=== PATIENT | male | born 1955 | race Caucasian/White ===

== ENCOUNTER 2021-04-10 08:35 | Outpatient (CLI) | payer MEDICARE, SELFPAY ==
--- NOTE | 2021-04-10 | EST_ITS ---
Patient Info Name: Irvin Burnham Age: 65 years : 1955 Gender: Male Ht: 73 in Wt: 170 lbs BSA: 1.99 m2 HR: 68 bpm BP: 111 / 79 mmHg Heart Rhythm: Sinus Rhythm Exam Date: 04/10/2021 9:04 AM Exam Location: [facility] Stress Patient Status: Outpatient Admit Date: 04/10/2021 Staff Ordering Physician: Reji, Jacoby Sandy NP Attending Provider: Reji, Jacoby Sandy NP Exercise Technologist: Bri Ball CT Nurse: JACOBY MORA Exercise Physician: Jose Lynch MD Exam Type: CA stress test treadmill Study Info Indications R07.9 - Chest pain, unspecified A treadmill exercise stress test was performed. Summary 1. Occasional stress-induced premature ventricular contractions. 2. No abnormal ST/T wave changes with exercise. 3. Exercise capacity fair to good at 6-10 METS. 4. Normal blood pressure response. 5. No chest discomfort with stress test. 6. Maximal treadmill stress EKG study exercising 6 minutes and 54 seconds of a Robert protocol achieving 91% of age predicted maximum heart rate and 8.6 Mets at peak exercise. 7. Francois treadmill score + 6 indicating low risk for adverse cardiovascular events of the next 5 years. Clinical correlation advised. Protocol: Robert Stress ECG Details Stage: REST Duration (min): 1 min : 0 sec Speed (mph): 0.0 Grade (%): 0 HR (bpm): 63 SBP (mmHg): 111 DBP (mmHg): 79 METS: --- Stage: REST Duration (min): 21 min : 12 sec Speed (mph): 0.0 Grade (%): 0 HR (bpm): 68 SBP (mmHg): 111 DBP (mmHg): 79 METS: --- Stage: REST Duration (min): 27 min : 26 sec Speed (mph): 1.0 Grade (%): 0 HR (bpm): 79 SBP (mmHg): 111 DBP (mmHg): 79 METS: --- Stage: STAGE 1 Duration (min): 1 min : 0 sec Speed (mph): 1.7 Grade (%): 10 HR (bpm): 95 SBP (mmHg): 111 DBP (mmHg): 79 METS: --- Stage: STAGE 1 Duration (min): 2 min : 0 sec Speed (mph): 1.7 Grade (%): 10 HR (bpm): 105 SBP (mmHg): 111 DBP (mmHg): 79 METS: --- Stage: STAGE 1 Duration (min): 3 min : 0 sec Speed (mph): 1.7 Grade (%): 10 HR (bpm): 101 SBP (mmHg): 149 DBP (mmHg): 51 METS: --- Stage: STAGE 2 Duration (min): 1 min : 0 sec Speed (mph): 2.5 Grade (%): 12 HR (bpm): 119 SBP (mmHg): 149 DBP (mmHg): 51 METS: --- Stage: STAGE 2 Duration (min): 2 min : 0 sec Speed (mph): 2.5 Grade (%): 12 HR (bpm): 128 SBP (mmHg): 177 DBP (mmHg): 58 METS: --- Stage: STAGE 2 Duration (min): 3 min : 0 sec Speed (mph): 2.5 Grade (%): 12 HR (bpm): 131 SBP (mmHg): 177 DBP (mmHg): 58 METS: --- Stage: STAGE 3 Duration (min): 0 min : 54 sec Speed (mph): 3.4 Grade (%): 14 HR (bpm): 141 SBP (mmHg): 196 DBP (mmHg): 71 METS: --- Stage: RECOVERY Duration (min): 0 min : 5 sec Speed (mph): 1.5 Grade (%): 0 HR (bpm): 141 SBP (mmHg): 196 DBP (mmHg): 71 METS:
--- NOTE | 2021-04-10 13:04 | WPDPFTINT ---
PFT Procedure Performed PFT Procedure Performed Spirometry with Pre/Post Bronchodilator Plethysmography (Lung Vol) Diffusing Cap (DLCO) Flow Vol Loop PFT Interpretation This is a pulmonary function test with spirometry, plethysmography and diffusing capacity. The test was performed and results interpreted in accordance with the 2019 and 2005 ATS/ERS Task Force guidelines respectively using the Global Lung Function Initiative-2012 reference equations. Patient demonstrated good effort and cooperation. Reproducibility criteria were met. The quality of the spirometry maneuver was Grade A. Findings: Spirometry: there is decreased maximal expiratory airflow at all lung volumes with concave expiratory flow tracing. The contour the inspiratory flow tracing is normal. The FVC is 4.40 L, 97% predicted. The FEV1 is 2.83 L, 82% predicted. The FEV1: FVC ratio 64%. Plethysmography: The total lung capacity is 8.18 L, 114% predicted. The functional residual capacity is 5.24 L, 138% predicted. The residual volume is 3.78 L, 157% predicted. Diffusing capacity: The diffusing capacity unadjusted for hemoglobin is 25.8, 94% predicted. The diffusing capacity adjusted for alveolar volume is 3.67, 92% predicted. Impression: There is a mild obstructive abnormality with a normal FEV1. The increase in residual volume is consistent with air trapping from an obstructive abnormality. The diffusing capacity is normal. There are no prior studies for comparison
== END 2021-04-10 08:36 | disposition home or self-care (01) ==
PROVIDERS: PCP Internal Medicine; Visit Provider Nurse Practitioner Family
DX: G56.01 Carpal tunnel syndrome, right upper limb (principal); G56.21 Lesion of ulnar nerve, right upper limb
CPT/HCPCS: 93017; 94375; 94726; 94729

== ENCOUNTER → 2021-05-01 14:11 | Outpatient (CLI) | payer MEDICARE, SELFPAY ==
--- NOTE | ~2021-05-01 | CT_ITS ---
EXAMINATION: CT lung screening EXAM DATE: 05/01/2021 14:28 INDICATION: Personal history of nicotine dependence. TECHNIQUE: Spiral low dose CT of the chest without contrast. Axial, coronal and sagittal images were reviewed. The dose-length product (DLP) for this examination was 92.94 mGy-cm. The exposure was ta ilored according to patient size (auto mA exposure control), and iterative reconstruction (ASIR) was used as additional dose reduction technique. There is no prior study for comparison. FINDINGS: The lungs are clear. Tracheobronchial tree is patent. There is no mediastinal, hilar o r axillary lymphadenopathy. There are no pleural or pericardial effusions. There is no pneumothor ax. There is mild coronary arterial calcification, arterial sclerosis. There is mild emphysema an d moderate hyperinflation with narrow cardiac silhouette. Upper abdomen is unremarkable. There is t horacic spondylosis without osteoblastic or osteolytic lesions identified. IMPRESSION: Lung-RADS category 1, negative (<1%chance of malignancy); recommend continued LDCT screen ing in 1 year. Reviewed, dictated and finalized at location A. NSIVE CARE MEDICINE SPECIALIST IMPRESSION: Lung-RADS category 1, negative (<1%chance of malignancy); recommend continued LDCT screening in 1 year.
== END ==
PROVIDERS: Visit Provider Nurse Practitioner
DX: Z12.2 Encounter for screening for malignant neoplasm of respiratory organs (principal); F17.210 Nicotine dependence, cigarettes, uncomplicated
CPT/HCPCS: 71271

== ENCOUNTER 2022-07-28 00:19 | Day surgery (SDC) | payer MEDICARE, SELFPAY ==
[2022-07-21 10:31] VITALS: BMI 21.2
--- NOTE | 2022-07-21 11:31 | PC.NURSE ---
PT STATES HE IS VERY ANXIOUS BECAUSE DURING LAST COLONOSCOPY 06/05/2015 HE VOMITED WHAT HE FELT LIKE WAS A LOT, HE IS AFRAID OF DOING THIS AGAIN DURING THIS PROCEDURE. I WENT OVER PRECAUTIONS AND ANESTHESIA WITH PATIENT. WE DISCUSSED HIS PREP AND HE IS REQUESTING TO DO A 2 DAY TO MAKE SURE HE IS WELL PREPPED FOR THIS, I WENT OVER DR. MADISON 2 DAY MIRALAX PREP WITH PATIENT AND DUE TO HIM STATING THAT HE FEELS HE HAS A SLOW EMPTYING I INSTRUCTED HIM TO START THE MIRALAX ON DAY 2 AT 5 AND BE NPO AFTER 10-11PM AND NOTHING TO DRINK AM OF PROC. PT ENCOURAGED TO DISCUSS THE VOMITING WITH ANESTHESIA WHEN HE COMES IN DOS
--- NOTE | 2022-07-28 08:42 | P.PNAN_ITS ---
Anes - Initial Pre Proc Eval Procedure: Operation Date: 07/28/22 11:00 Proposed Procedures p Colonoscopy - Jr Leonardo MD Date/Time: 07/28/22 08:42 Surgeon: Jr Leonardo MD Pre Op Diagnosis: family hx colon ca/polyps Patient Data Age: 67 Gender: M Height: 1.88 m Weight: 75 kg Allergies Allergy/AdvReac Type Severity Reaction Status Date / Time No Known Allergies Allergy Unknown Verified 07/28/22 09:53 Home Medications Medication Instructions Recorded Confirmed Type bupropion HCl 150 mg 24 hr tablet, 150 mg PO DAILY 07/21/22 07/28/22 History extended release fluticasone fur. 100 mcg-umeclid 1 inh inhalation DAILY 07/21/22 07/28/22 History 62.5 mcg-vilant 25 mcg inhalat.powder (Trelegy Ellipta) kyajnggk-few-urxve acid 300 1 tablet PO DAILY 07/21/22 07/28/22 History mcg-lycopene 600 mcg-lutein 300 mcg tablet (Centrum Silver Men) Patient hx anesthesia problems: none Family hx anesthesia problems: none Results Review: All pre-operative results and documents have been reviewed as part of the pre- operative evaluation. PMFSH Past Medical History Medical History Smoker Social History Social History Years smoked: 50 Smoking status: Current every day smoker Substance use: never Substance use type: does not use Living arrangements: with family Spiritual care concerns: No Anes - Eval Final PreProcedure Day of Procedure 07/28/22 08:42 Patient weight: normal Heart: regular rate and rhythm Lungs: clear to auscultation and normal air movement Airway: Mallampati scale class II Neurological: alert and oriented Last oral intake: >/= 8 hours ASA classification: II Emergent: no Anesthetic plan: proceed Anesthesia type and monitoring: general GIVS Results Review: All pre-operative results and documents have been reviewed as part of the pre- operative evaluation. Informed Consent: The patient's anesthetic plan and its attendant risks and benefits were discussed with the patient/family/POA. Questions were solicited and answers provided to the satisfaction of the patient/family/POA.
[2022-07-28 09:54] VITALS: BP 136/69; PULSE 76; RESP 18; TEMP 36.4; O2SAT 99
--- NOTE | 2022-07-28 10:04 | PM.HPGS ---
History of Present Illness History of Present Illness Consent: Risks, benefits, and alternatives have been discussed and questions answered. Patient agrees to proceed with procedure. Chief complaint: family hx colon ca/polyps Narrative: Irvin Burnham is a 67 year old male Who had polyps removed about 7 years ago. There is also family history of polyps. Review of Systems Review of Systems: All systems reviewed & are unremarkable except as noted in HPI and below PMFSH Past Medical History Medical History Smoker Social History Social History Years smoked: 50 Smoking status: Current every day smoker Substance use: never Substance use type: does not use Living arrangements: with family Spiritual care concerns: No Meds Home Medications and Allergies Home Medications Medication Instructions Recorded Confirmed Type bupropion HCl 150 mg 24 hr tablet, 150 mg PO DAILY 07/21/22 07/28/22 History extended release fluticasone fur. 100 mcg-umeclid 1 inh inhalation DAILY 07/21/22 07/28/22 History 62.5 mcg-vilant 25 mcg inhalat.powder (Trelegy Ellipta) zmmvtqtf-lzd-rgvkw acid 300 1 tablet PO DAILY 07/21/22 07/28/22 History mcg-lycopene 600 mcg-lutein 300 mcg tablet (Centrum Silver Men) Allergies Allergy/AdvReac Type Severity Reaction Status Date / Time No Known Allergies Allergy Unknown Verified 07/28/22 09:53 Vital Signs Vital Signs - 24 hr 07/28/22 09:54 Temperature 36.4 C Pulse Rate 76 Respiratory Rate 18 Blood Pressure 136/69 Pulse Oximetry 99 Oxygen Delivery Room Air Exam Const: General: alert Orientation/consciousness: patient oriented x3 Resp: Auscultation: clear to auscultation bilaterally Cardio: Rate: regular rate Rhythm: regular rhythm GI: GI Palp: Yes Soft to palpation and No Tenderness to palpation present (GI) Neuro: General: patient oriented x3
[2022-07-28] MEDS: LACTATED RINGERS 1,000 ML 150 ML IV CONT (10:23)
[2022-07-28 11:03] VITALS: BP 81/51; PULSE 57; RESP 12; O2SAT 97
[2022-07-28 11:13] VITALS: BP 83/50; PULSE 54; RESP 12; O2SAT 98
[2022-07-28 11:23] VITALS: BP 95/58; PULSE 50; RESP 18; O2SAT 99
[2022-07-28 11:33] VITALS: BP 100/71; PULSE 50; RESP 22; O2SAT 99
[2022-07-28 11:43] VITALS: BP 108/55; PULSE 54; RESP 19; O2SAT 99
== END 2022-07-28 11:50 | disposition home or self-care (01) ==
PROVIDERS: PCP Internal Medicine; Visit Provider Internal Medicine Gastroenterology
PROC: 0DJD8ZZ Inspection of Lower Intestinal Tract, Via Natural or Artificial Opening Endoscopic (ICD-10-PCS; CPT 45378; principal; 2022-07-28 11:00)
DX: Z12.11 Encounter for screening for malignant neoplasm of colon (principal); D12.4 Benign neoplasm of descending colon; Z79.51 Long term (current) use of inhaled steroids; F17.200 Nicotine dependence, unspecified, uncomplicated
CPT/HCPCS: 45380; 88305; J2001; J2704; J7120

== ENCOUNTER 2023-05-02 12:21 | Outpatient (CLI) | payer MEDICARE, SELFPAY ==
--- NOTE | ~2023-05-02 | CT_ITS ---
CT Scan of the Chest without Contrast: Clinical Indication: Lung cancer screening, nicotine dependence Technique: Contiguous sections were acquired throughout the chest without intravenous contrast. Dose reduction technique was used on this scan by utilizing automated exposure control and iterative recon struction technique. The dose-length product (DLP) was 83.17 mGy-cm. COMPARISON: 05/01/2021 Findings: There is no evidence of any significant mediastinal, hilar or axillary lymphadenopathy. The mediastin al soft tissues appear normal. There is no evidence of pleural or pericardial effusion. Calcified lingular granuloma noted. Right apical paraseptal emphysematous change noted. Images through the upper abdomen reveal no abnormalities. Impression: Lung RADS 2: Benign appearance. 12 month follow-up screening CT advised. Reviewed, dictated and finalized at [facility]. Impression: Lung RADS 2: Benign appearance. 12 month follow-up screening CT advised.
== END 2023-05-02 12:22 | disposition home or self-care (01) ==
LOC: ANHIMG 12:23
PROVIDERS: PCP Internal Medicine; Visit Provider Internal Medicine
DX: F17.210 Nicotine dependence, cigarettes, uncomplicated (principal)
CPT/HCPCS: 71271

== ENCOUNTER 2023-05-18 15:27 | Emergency (ER) | payer MEDICARE, MEDICAID, SELFPAY ==
--- NOTE | 2023-05-18 15:36 | ED.URI ---
HPI - URI/Sore Throat General Chief Complaint: Upper Respiratory Infection Stated Complaint: COUGH/SORE THROAT/DIZZY/NO ENERGY Time Seen by Provider: 05/18/23 15:36 Source: patient Mode of arrival: ambulatory Limitations: no limitations History of Present Illness HPI Narrative: Patient is a 59-year-old male that presents with 2 days of cough, congestion, sore throat and fatigue. Patient states cough and sore throat improved today but he woke up extremely tired and still having congestion. Patient has not taken anything for symptoms. Patient had exposure to COVID from grandson. Denies any fever, chills, nausea vomiting diarrhea. Related Data Home Medications Medication Instructions Recorded Confirmed bupropion HCl 150 mg 24 hr tablet, 150 mg PO DAILY 07/21/22 07/28/22 extended release fluticasone fur. 100 mcg-umeclid 1 inh inhalation DAILY 07/21/22 07/28/22 62.5 mcg-vilant 25 mcg inhalat.powder (Trelegy Ellipta) fmmzuvyx-aa-gbzsi 300 mcg-K 60 1 tablet PO DAILY 07/21/22 07/28/22 mcg-lycop 600 mcg-lutein 300 mcg tablet (Centrum Silver Men) Allergies Allergy/AdvReac Type Severity Reaction Status Date / Time No Known Allergies Allergy Unknown Verified 07/28/22 09:53 Review of Systems Review of Systems: All systems reviewed & are unremarkable except as noted in HPI and below Constitutional: Constitutional: Denies body ache(s), Denies chills, Reports fatigue, Denies fever(s), Denies headache(s), Denies malaise and Denies weakness Eyes: Eyes: Denies blurry vision, Denies itchy eyes and Denies loss of vision ENT: Denies otalgia, Denies headache(s), Reports nasal congestion, Denies sinus pain and Reports sore throat Cardiovascular: Cardiovascular: Denies chest pain, Denies irregular heart rhythm and Denies dyspnea Respiratory: Respiratory: Reports cough and Denies dyspnea Gastrointestinal: Gastrointestinal: Denies abdominal pain, Denies diarrhea, Denies nausea and Denies vomiting Musculoskeletal: Musculoskeletal: Denies back pain, Denies myalgias and Denies arthralgias Integumentary/Breasts: Skin/Breast: Denies pruritus and Denies rash Neurologic: Denies headache(s), Denies loss of vision and Denies weakness Psychiatric: Psychiatric: Reports no additional psychiatric complaints Endocrine: Endocrine: Denies fatigue Allergic/Immunologic: Allergic/Immunologic: Denies itchy eyes PMFSH Past Medical History Medical History Smoker Social History Social History Years smoked: 50 Smoking status: Current every day smoker Substance use: never Substance use type: does not use Living arrangements: with family Spiritual care concerns: No Comments At time of signature, agree with nursing past medical, surgical, social and family history. There is no relevant family history pertinent to the presenting complaint. Exam Const: General: cooperative, healthy appearing, comfortable, no acute distress and well nourished Nutritional Appearance: well nourished Orientation/consciousness: patient oriented x3 Limitations: no limitations HENMT: Head: normal to inspection, normocephalic and atraumatic Ears: hearing grossly normal bilaterally, external ears normal, TM's normal bilaterally, EAC's normal and no periauricular adenopathy Face/Nose/Sinus: Normal external nose present, Abnormal mucous membranes and turbinates present erythematous bilateral and diffuse, normal facial exam, sinuses nontender and face symmetric Face and sinus: normal facial exam, sinuses nontender and face symmetric Mouth: Yes Normal oral and palatal mucosa present, Yes lip normal, Yes tongue normal, Yes Normal salivary glands and ducts present, Yes oropharynx normal and Yes moist mucous membranes Teeth and gingiva: dentition normal Throat: posterior oropharynx normal, tonsils normal and uvula midline Eyes: General: appearance normal, both eyes and all related structures A
[2023-05-18 15:40] VITALS: BP 101/65; PULSE 58; RESP 16; TEMP 36.3; O2SAT 99
== END 2023-05-18 16:01 | disposition home or self-care (01) ==
PROVIDERS: Emergency Provider Nurse Practitioner Family; PCP Internal Medicine
DX: J06.9 Acute upper respiratory infection, unspecified (principal); Z20.822 Contact with and (suspected) exposure to COVID-19; F17.200 Nicotine dependence, unspecified, uncomplicated
CPT/HCPCS: 87426; 99213; G0463

== ENCOUNTER 2024-03-09 09:25 | Outpatient (CLI) | payer MEDICARE, SELFPAY ==
--- NOTE | ~2024-03-09 | US_ITS ---
EXAMINATION: US aorta [facility] scr[facility] DATE: 03/09/2024 10:19 INDICATION: Current smoker for abdominal aortic aneurysm screening TECHNIQUE: Grayscale, color Doppler, and pulsed Doppler images of the aorta and common iliac arteries were obtained. COMPARISON: None. FINDINGS: The proximal aorta measures 2.9 cm AP. The mid aorta measures 2.2 cm. The distal aorta measures 2.3 c m. The right common iliac artery measures 1.2 cm. The left common iliac artery measures 1.0 cm. There are small amount of scattered nonhemodynamically significant atherosclerotic plaque along the abdomi nal aorta. IMPRESSION: 1. Normal caliber abdominal aorta. Reviewed, dictated and finalized at location B. ING ANALYST
== END 2024-03-09 09:26 | disposition home or self-care (01) ==
PROVIDERS: PCP Nurse Practitioner; Visit Provider Nurse Practitioner
DX: F17.200 Nicotine dependence, unspecified, uncomplicated (principal)
CPT/HCPCS: 76706

== ENCOUNTER 2024-05-02 09:56 | Outpatient (CLI) | payer MEDICARE, SELFPAY ==
--- NOTE | ~2024-05-02 | CT_ITS ---
CT Scan of the Chest without Contrast: Clinical Indication: Lung cancer screening, nicotine dependence Technique: Contiguous sections were acquired throughout the chest without intravenous contrast. Dose reduction technique was used on this scan by utilizing automated exposure control and iterative recon struction technique. The dose-length product (DLP) was 83.55 mGy-cm. COMPARISON: 05/02/2023 Findings: There is no evidence of any significant mediastinal, hilar or axillary lymphadenopathy. The mediastin al soft tissues appear normal. There is no evidence of pleural or pericardial effusion. There is mild biapical paraseptal emphysema. There are grouped subcentimeter nodules in the left uppe r lobe peripherally, most compatible with focal small airways infectious process. Largest nodule olga ures 5 mm. Images through the upper abdomen reveal no abnormalities. Impression: Lung RADS 2: Benign appearance. 12 month follow-up screening CT advised. Reviewed, dictated and finalized at [facility]. Impression: Lung RADS 2: Benign appearance. 12 month follow-up screening CT advised.
--- OUTSIDE RECORDS SUMMARY | 2024-05-02 10:58 | XMS_ITS | Clinical Summary ---
Author Organization [facility] Address [facility] [place] [address] Care Team Providers Care Wall Insulation Sprayer Name Role Phone Reena, Charlene Hakan FOOD SERVICE MANAGER Primary Care Provider [phone] Allergies No known active allergies Medications buPROPion XL (WELLBUTRIN XL) 150 MG 24 hr tablet Take 1 tablet (150 mg total) by mouth daily. Active TRELEGY ELLIPTA 100-62.5-25 MCG/ACT AEROSOL POWDER, BREATH ACTIVATED Inhale 1 puff into the lungs daily. 12/06/2023 Active Active Problems Problem Noted Date Diagnosed Date Adenomatous polyp 07/29/2023 Overview (07/29/2023): Colonoscopy 07/2022 Medial epicondylitis of both elbows 07/27/2023 Chronic obstructive pulmonar y disease, unspecified COPD type ([facility]) 07/27/2023 Current smoker 07/27/2023 Recurrent major depressive disorder, in partial remission 07/27/2023 History of colon polyps 07/27/2023 Encounters Date Type Department Care Team Description 03/09/2024 Scan [facility] SRVCS Scanned, [facility] Ultrasound (SCAN) from Last 3 Months Immunizations Name Administration Dates Next Due Arexvy Respiratory Syncytial Virus (RSV, adjuvanted) 0.5 mL, PF 11/10/2022 Fluzone High Dose (IIV, trivalent, 0.5mL) 2023 Fluzone High Dose - >Age 65 (Prefilled Syringe) 11/10/2022,12/06/2021 Influenza (Generic) 02/18/2017 Influenza Adult (Generic) 12/15/2020,01/03/2019 Pneumococcal (Prevnar 20) 07/10/2021 Tdap (Adacel) 07/27/2023 Tdap (Generic) 02/21/2012 Family History Medical History Relation Comments Cancer Brother Cancer Father Heart Disease Father Heart Disease Mother Arthritis Sister Heart Disease Sister Relation Status Comments Brother Alive Father Mother Sister Alive Social History Tobacco Use Types Packs/Day Years Used Date Smoking Tobacco: Every Day Cigarettes 0.5 52.2 Started: 1972 Passive Smoke Exposure: Past Smokeless Tobacco: Never Tobacco Cessation:Ready to Q uit: Yes; Counseling Given: Yes Alcohol Use Standard Drinks/Week Comments Not Currently 0 (1 standard drink = 0.6 oz pur e alcohol) AUDIT-C Answer Date Recorded Q1: How often do you have a drink containing alc ohol? Monthly or less 12/28/2023 Q2: How many drinks containi ng alcohol do you have on a typical day when you are drinking? 1 or 2 12/28/2023 Q3: How often do you have si x or more drinks on one occasion? Never 12/28/2023 PHQ-2 Answer Date Recorded Patient Health Questionnaire-2 Score 2 12/28/2023 Sex and Gender Information Value Date Recorded Sex Assigned at Not on file Legal Sex Male 1:16 PM CDT Gender Identity Not on file Sexual Orientation Not on file Last Filed Vital Signs Vital Sign Reading Time Taken Comments Blood Pressure 106/68 12/28/2023 10:47 AM METALLURGICAL SPECIALIST Pulse 61 12/28/2023 10:47 AM METALLURGICAL SPECIALIST Temperature 37.7 C (99.8 F) 12/28/2023 10:47 AM METALLURGICAL SPECIALIST Respiratory Rate 16 12/28/2023 10:47 AM METALLURGICAL SPECIALIST Oxygen Saturation 99% 12/28/2023 10:47 AM METALLURGICAL SPECIALIST Inhaled Oxygen Concentration - - Weight 73.6 kg (162 lb 3.2 oz) 12/28/2023 10:47 AM METALLURGICAL SPECIALIST Height 182.9 cm (6') 12/28/2023 10:47 AM METALLURGICAL SPECIALIST Body Mass Index 22 12/28/2023 10:47 AM METALLURGICAL SPECIALIST Plan of Treatment Upcoming Encounters Date Type Department Care Team (Late st Contact Info) Description 01/09/2025 1:00 PM METALLURGICAL SPECIALIST Office Visit [facility] - [address] [place] [address] Charlene Valles, FOOD SERVICE MANAGER [address] [place] [address] Health Maintenance Due Date Last Done Comments Hepatitis C 1973 Zoster Vaccines (1 of 2) 2004 PHQ-2 (Physician [place]) 02/22/2024 12/28/2023 Lung Cancer Screening 04/21/2024 Postpo sondra from 2004 (Awaiting Documentation) Annual Medicare Wellness Visit 12/28/2024 12/28/2023 Colorectal Cancer Screening Colonoscopy (10 Years) 07/28/2025 07/28/2022 DTaP, Tdap and Td Vaccines (3 - Td or Tdap) 07/26/2033 07/27/2023, 02/21/2012 Pneumococcal Vaccine: 65+ Years Completed 07/10/2021 RSV Immunization or 60+ Years Completed 11/10/2022 COVID-19 Vaccine Completed 11/09/2023, , 12/06/2021, Additional history exists Influenza Adult Completed 11/30/2023, 10/23, 12/06/2021, Additional history exists AAA SCREENING Completed 03/09/2024 Meningococcal B Vaccine Aged Out No l onger eligible based on patient's age to complete this topic Meningococcal Vaccine Aged Out No emilie lina eligible based on patient's age to complete this topic RSV Immunizations Under 20 Months Aged Out No longer eligible based on patient's age to complete this topic Procedures Procedure Name Priority Date/Time Associated Diagnosis Comments US AORTA (AAA) SCREEN - GENERIC 03/09/2024 COLONOSCOPY GENERIC (SCAN ORDER) 07/28/2022 from Last 3 Months or Most Recently Relevant to Health Maintenance Results * US AORTA (AAA) SCREEN - GENERIC (03/09/2024) Anatomical Region Laterality Modality Other 03/09/2024 [facility] Scanned SCANNING Final Resu lt * COLONOSCOPY GENERIC (SCAN ORDER) (07/28/2022) 07/28/2022 [facility] Scanned SCANNING Final Resu lt from Last 3 Months or Most Recently Relevant to Health Maintenance Insurance [facility] Care Teams Wall Insulation Sprayer Relationship Specialty Start Date End Date Charlene Valles NP [address] [place] [address] PCP - General NURSE PRACTITIONER 07/27/23
--- OUTSIDE RECORDS SUMMARY | 2024-05-02 10:58 | XMS_ITS | Clinical Summary ---
Author Organization [facility] Address [address], [address] [address] Phone Care Team Providers Care Shade Bander Name Role Phone Unavailable Primary Care Provider Unavailabl e Immunizations Immunization Administration Dates Next Due TDAP Vaccine 02/21/2012 Social History Tobacco Use Types Packs/Day Years Used Date Smoking Tobacco: Never Assessed Sex and Gender Information Value Date Recorded Sex Assigned at Not on file Legal Sex Male 10:58 PM CDT Gender Identity Not on file Sexual Orientation Not on file Plan of Treatment Health Maintenance Due Date Last Done Comments Hepatitis C Virus (HCV) Screening 1955 Colonoscopy 06/10/1999 Colorectal Cancer Screening 06/10/1999 Cologuard 2004 Immunochemical Fecal Occult Blood 2004 Pneumococcal Immunization (5 0+ years) (1 of 1 - PCV) 2004 Zoster Immunization (1 of 2) 2004 PSA Discussion 2009 Influenza Immunization (#1) 2023 SARS-COV-2 Immunization ( - season) 2023 Respiratory Syncytial Virus (RSV) Immunization (Adult) (1 - 1-dose 75+ series) 2029 DTaP/Tdap/Td Immunization Discontinued 02/21/2012 Hepatitis B Immunization Aged Out No longer eligible based on patient's age to complete this topic Meningococcal Immunization (ACWY) Aged Out No longer eligible based on patient's age to complete this topic Rotavirus Immunization Aged Out No lo nger eligible based on patient's age to complete this topic
--- OUTSIDE RECORDS SUMMARY | 2024-05-02 10:58 | XMS_ITS | Continuity of Care Document ---
Author Organization [facility] Address [address] [place] [address] Phone Care Team Providers Care Steward/Stewardess Room Name Role Phone Constantine Arrington Unavailable Unavailable Procedures Procedure Date Eye Exam, New Patient Remove Foreign Body From Eye Advance Directives Directive Yes / No Effective Date File Name No Information Encounters Encounter Description Practice Location Reason(s) For Visit Diagnoses Date Provider Providers Copied on Encounter [facility], [address], [place], [place], [id number], [place] tel:[phone] [facility] No Information [address] , [address], [place], [address], [place]. tel:[phone] Family History Family Member Type Diagnosis Age At Onset No Information Payers Payer name Insurance type Covered democrat ID Authoriza tion(s) No Information Social History Type Description Quantity Date Captured Comments Sex Female Smoking Status No Information Chief Complaint And Reason For Visit No Information Reason For Referral Reason For Referral No Information History Of Present Illness Encounter Date Complaint History Of Prese nt Illness No Information Functional Status Date Functional Assessmen t No Information Instructions Date Instruction Additional Infor mation No Information Assessments Type Assessment Date No Information Patient Care Teams Name Effective Dates (start - stop) Status Members No Information
== END 2024-05-02 09:57 | disposition home or self-care (01) ==
PROVIDERS: PCP Nurse Practitioner; Visit Provider Nurse Practitioner
DX: Z12.2 Encounter for screening for malignant neoplasm of respiratory organs (principal); Z87.891 Personal history of nicotine dependence
CPT/HCPCS: 71271